=== PATIENT | male | born 1960 | race Caucasian/White ===

== ENCOUNTER → 2023-09-30 12:43 | Outpatient (CLI) | payer MEDICARE, SELFPAY ==
--- NOTE | ~2023-09-30 | MR_ITS ---
EXAMINATION: MR hip RT wo con DATE: 09/30/2023 14:02 INDICATION: Arthritis of right hip. TECHNIQUE: Magnetic resonance imaging (MRI) of the right hip was performed without intravenous contra st. COMPARISON: None FINDINGS: Bones/cartilage: Bone alignment is normal. No fracture. The hips demonstrate tiny osteophytes. Small cgala-yq-woul adela ges of right hip demonstrate deep partial thickness cartilage loss superiorly. Labrum: There is a tear of the right acetabular labrum. Fluid: There is no hip joint effusion. Soft tissues: The gluteus minimus and gluteus medius tendons are normal. The hamstring tendon origins are normal. T he iliopsoas tendons are normal. There are changes of bilateral inguinal hernia repairs. IMPRESSION: 1. Moderate right hip osteoarthritis and mild left hip osteoarthritis. Reviewed, dictated and finalized at location [facility]
== END ==
PROVIDERS: PCP Family Medicine Sports Medicine
DX: M16.0 Bilateral primary osteoarthritis of hip (principal)
CPT/HCPCS: 73721